=== PATIENT | male | born 1950 | race Caucasian/White ===

== ENCOUNTER 2017-06-14 20:08 | Emergency (ER) | payer OTHER, BC ==
[~2017-06-14] VITALS: Ht 167.6 cm; Wt 69.3 kg
[2017-06-14] MEDS ORDERED: EPIPEN ADU0.3 MG/0.3 IM (20:29)
[2017-06-14 22:19] VITALS: BP 118/75
== END 2017-06-14 22:24 | disposition home or self-care (01) ==
LOC: EME 20:08
DX: R09.02 Hypoxemia (principal); R42 Dizziness and giddiness; I95.9 Hypotension, unspecified; T78.1XXA Other adverse food reactions, not elsewhere classified, initial encounter; Z91.013 Allergy to seafood
CPT/HCPCS: 99281; 99284; J0171; J1200; J2405; J7040; J7644

== ENCOUNTER 2017-08-06 08:49 | Emergency (ER) | payer OTHER, BC ==
[~2017-08-06] VITALS: Ht 167.6 cm; Wt 73.3 kg
[~2017-08-06 08:49] MED LIST: EPIPEN ADU0.3 MG/0.3 IM
[2017-08-06 08:54] VITALS: BP 134/78
== END 2017-08-06 11:34 | disposition left against medical advice (07) ==
LOC: EME 08:49
DX: R09.89 Other specified symptoms and signs involving the circulatory and respiratory systems (principal); R07.0 Pain in throat; R05 Cough; R09.3 Abnormal sputum; Z53.21 Procedure and treatment not carried out due to patient leaving prior to being seen by health care provider
CPT/HCPCS: 71046